=== PATIENT | male | born 1990 | race Caucasian/White ===

== ENCOUNTER 2019-12-18 01:31 | Emergency (ER) | payer SELFPAY ==
[~2019-12-18] VITALS: Ht 175.3 cm; Wt 77.0 kg
[2019-12-18] MEDS ORDERED: IBUPROFEN 600MG TABLET PO STA (02:08)
[2019-12-18] MEDS ORDERED: TETRACAINE 0.5% OPHTH DROPS 4ML BOTHEYE ONE (02:15)
[2019-12-18] MEDS ORDERED: BALANCED SALT IRRIG SOLN 15ML IR ONE (02:15)
[2019-12-18] MEDS ORDERED: FLUORESCEIN SODIUM 1MG/STRIP BOTHEYE ONE (02:15)
[2019-12-18 02:28] VITALS: BP 111/67
== END 2019-12-18 04:40 | disposition home or self-care (01) ==
LOC: ER 01:31
DX: T15.92XA Foreign body on external eye, part unspecified, left eye, initial encounter (principal); T15.91XA Foreign body on external eye, part unspecified, right eye, initial encounter; X58.XXXA Exposure to other specified factors, initial encounter; Y93.9 Activity, unspecified
CPT/HCPCS: 99283